=== PATIENT | male | born 1945 | race Caucasian/White ===

== ENCOUNTER 2019-02-08 10:22 | Day surgery (SDC) | payer OTHER, SELFPAY ==
--- NOTE | 2019-02-08 | PATH_ITS ---
[facility] Accession Number: [id number] . 01 Material submitted: . PART A: stomach - LESION PROXIMAL STOMACH PART B: esophagus, E-G Junction - GE JUNCTION . 02 Diagnosis: A. Proximal Stomach, Biopsy: Gastric hyperplastic polyp. Negative for Helicobacter by immunohistochemistry. Negative for intestinal metaplasia. Negative for dysplasia and malignancy. . B. Gastroesophageal Junction, Biopsy: Squamocolumnar junctional mucosa with specialized intestinal metaplasia, consistent with Sandoval's esophagus. Negative for dysplasia and malignancy. [facility]/02/10/2019 . 02 Electronically signed: . Orin Diamond MD, Pathologist NPI- [id number] . 01 Gross description: . Part A: LESION PROXIMAL STOMACH: Received in formalin are 2 fragment(s) of newton, soft tissue measuring 0.2 x 0.2 x 0.2 cm to 0.3 x 0.2 x 0.2 cm which is entirely submitted and submitted entirely in 1 cassette(s) Part B: GE JUNCTION: Received in formalin are multiple fragment(s) of newton, soft tissue measuring 0.1 x 0.1 x 0.1 cm to 0.2 x 0.1 x 0.1 cm which is entirely submitted and submitted entirely in 1 cassette(s) /DMC /DMC . 02 Microscopic: . A. An immunohistochemical stain was performed to evaluate for Helicobacter organisms and is negative. The control stain showed appropriate reactivity. . * This test was developed and its performance characteristics determined by [employer]. It has not been cleared or approved by the U.S. Food and Drug Administration. The FDA has determined that such clearance or approval is not necessary. This test is used for clinical purposes. It should not be regarded as investigational or for research. . 02 Pathologist provided ICD-10: K22.70 . 02 CPT . 945726, 948340, C43321 Performed at: 01 [facility] [address] [place] [address], [place], [place] [id number] MD Huseyin Bolaños MD Phone: [phone] Performed at: 02 [facility] [address] [place], [place] [id number] MD Orin Diamond MD Phone: [phone]
[2019-02-08] MEDS: SODIUM CHLORIDE 0.9% 1,000 ML 200 ML IV (10:57)
[2019-02-08 10:58] VITALS: BP 143/82; PULSE 66; RESP 18; TEMP 36.3; O2SAT 100
[2019-02-08 11:05] VITALS: BMI 27.0
--- NOTE | 2019-02-08 11:34 | PM.HP.1 ---
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 He had a scope done a year ago and a gastric tumor was found that was resected. It turned out to be a gist tumor. He has no trouble eating or swallowing. They repaired his hiatal hernia and he has had no reflux since his operation. Patient History Medical History (Updated 02/08/19 @ 11:37 by Solomon Moses MD) Sandoval's esophagus determined by biopsy (Acute) GERD (gastroesophageal reflux disease) (Acute) TIA (transient ischemic attack) (Acute) Gastrointestinal stromal tumor (GIST) of stomach (Resolved) Surgical History (Updated 02/08/19 @ 11:23 by Kathy Null RN) History of appendectomy (Acute) Social History household members: children Family & Social History Social History: household members children Meds Home Medications Medication Instructions Recorded Confirmed Type aspirin 81 mg PO DAILY 02/08/19 02/08/19 History atorvastatin 20 mg PO DAILY 02/08/19 02/08/19 History cholecalciferol (vitamin D3) 5,000 unit PO DAILY 02/08/19 02/08/19 History [Vitamin D3] coenzyme Q10 [Co Q-10] 100 mg PO DAILY 02/08/19 02/08/19 History cyanocobalamin-cobamamide [B-12 2,500 mg SUBLINGUAL DAILY 02/08/19 02/08/19 History Plus] levothyroxine 75 mcg PO DAILY 02/08/19 02/08/19 History prazosin 5 mg PO BEDTIME 02/08/19 02/08/19 History trazodone 150 mg PO DAILY 02/08/19 02/08/19 History Allergies Allergy/AdvReac Type Severity Reaction Status Date / Time No Known Allergies Allergy Verified 02/08/19 11:13 Review of Systems Review of Systems All systems reviewed & are unremarkable except as noted in HPI and below Exam Vital Signs (past 8 hours): - 02/08/19 10:58 Temperature 97.4 F L Pulse Rate 66 Respiratory Rate 18 Blood Pressure 143/82 H Pulse Oximetry 100 Oxygen Delivery Method Room Air Narrative Exam Narrative: Pleasant cooperative patient no apparent distress. Lungs are clear to auscultation. No rales or rhonchi. Heart regular rate and rhythm no murmur gallop. Abdomen is soft nontender without mass. No obvious hernias. Patient is alert and oriented x3. Assessment & Plan Assessment & Plan narrative: The patient for a screening colonoscopy. I have discussed the procedure with them. Risks of bleeding, perforation which would necessitate major operation, failure to find remove all lesions, the potential tattoo were all discussed. All questions were answered. They wished to proceed.
--- NOTE | 2019-02-08 11:37 | PM.PREOP ---
Pre-operative Note Interval Note History & Physical reviewed/Exam performed by Physician: Yes Changes to H&P: Yes H&P completed within 30 days and has changed as indicated here:: Discussed risks of bleeding and perforation with him along with the need to biopsy his distal esophagus. He wishes to proceed ASA Class (for procedural sedation): II
[2019-02-08] MEDS: TETRACAINE/BENZOCAINE/BUTAMBEN (CETACAINE) BOTTLE 1 SPRAY TOP (11:40)
[2019-02-08] MEDS: LIDOCAINE 4% SOLN 50 ML 20 ML TOP (11:41)
--- NOTE | 2019-02-08 11:45 | SUR.OPER ---
GLASSES AND HEARING AID FROM LEFT EAR IN LABELED CONTAINERS TO PACU WITH PATIENT. RIGHT EAR HEARING AID IN PLACE
[2019-02-08] MEDS: MIDAZOLAM 5 MG/5 ML VIAL IV (11:46)
[2019-02-08] MEDS: fentaNYL 250 MCG/5 ML INJ IV (11:47)
--- NOTE | 2019-02-08 12:03 | P.OP.ENDO_ITS ---
Operative Date/Time/Diagnoses Date of procedure: 02/08/19 Time of procedure: 11:56 Pre-op diagnosis: History of gastrointestinal stromal tumor of the stomach post resection. History of Sandoval's esophagus Post-op diagnosis: same Procedure & Clinicians Study performed: EGD with cold biopsy Same procedure as scheduled: Yes Indications: Patient with the above history here for surveillance exam Surgeon: Solomon Moess Procedure Notes SCOAP/Timeout: Performed Procedure in detail: The patient was placed in the left lateral decubitus position after having topical anesthetic applied his oropharynx. He was sedated using fentanyl and Versed. Bite block was inserted. The scope was passed through it into the esophagus. The esophagus was normal until we reach the distal esophagus. The GE junction was somewhere in the area of 37 cm from the incisors. It was not particularly distinct because of extensive Sandoval's esophagus. the scope was passed into the stomach which insufflated well. the body and antrum were normal in appearance. The pyloric channel was patent. The duodenum was normal to the 3rd part. Scope was brought back into the stomach and retroflexed. There was an unusual metallic device apparently placed at the time of operation. I am not quite sure the nature of it but it seemed to gather tissue together and at the gathering was a rounded ball of tissue that may represent a normal finding but given the patient's prior history I chose to biopsy this area. pictures were taken. The scope was then straightened and brought up into the GE junction area where multiple biopsies were taken cir cumferentially. scope was then removed and the patient tolerated the procedure well. Scope withdrawal time: Not applicable Sedation minutes: 14 Findings: Sandoval's esophagus and other findings (Rounded lesion surrounded by a metallic clip) Specimen(s): other (Biopsies of rounded gastric lesion and GE junction) Complications: none Recommendations: EGD in 1 year Follow up: as needed Disposition: PACU
[2019-02-08 12:04] VITALS: BP 111/79; PULSE 65; RESP 11; TEMP 36.6; O2SAT 96
[2019-02-08 12:05] VITALS: BP 121/80; PULSE 80; RESP 13; O2SAT 95
[2019-02-08 12:10] VITALS: BP 121/80; PULSE 83; RESP 15; O2SAT 92
--- NOTE | 2019-02-08 12:12 | SUR.PHASEI ---
report to óscar. pt gradually awakened, tolerated ice chips, speech strong.
[2019-02-08 12:15] VITALS: BP 112/81; PULSE 77; RESP 15; O2SAT 95
== END 2019-02-08 12:27 | disposition home or self-care (01) ==
PROVIDERS: PCP Family Medicine; Visit Provider Specialist
PROC: 0DJ08ZZ Inspection of Upper Intestinal Tract, Via Natural or Artificial Opening Endoscopic (ICD-10-PCS; CPT 43235; principal; 2019-02-08 11:45)
DX: K22.70 Barrett's esophagus without dysplasia (principal); Z87.19 Personal history of other diseases of the digestive system; K21.9 Gastro-esophageal reflux disease without esophagitis
CPT/HCPCS: 43239; 99152; J2250; J3010

== ENCOUNTER → 2019-05-16 10:54 | Outpatient (CLI) | payer OTHER, SELFPAY ==
--- NOTE | 2019-05-16 | DI.US.S_ITS ---
PROCEDURE: US CAROTID DOPPLER BI INDICATIONS: Occlusion and stenosis of bilateral carotid arteri TECHNIQUE: Color and pulse Doppler interrogation was performed of both carotid systems, with image documentation and velocity measurements. COMPARISON: [facility], , CAROTID DOPPLER BI, 02/17/2018, 9:58. FINDINGS: Stenosis calculations are based on SRU (Society of Radiologists in Ultrasound) criteria. The flow velocities and the arterial waveforms are normal within both carotid arterial systems. Atherosclerotic plaque is seen on both sides. The estimated degree of internal carotid artery stenosis is less than 50%. Antegrade flow is confirmed within both vertebral arteries. IMPRESSION: No hemodynamically significant stenosis is seen. Similar to prior. Atherosclerotic plaque is noted bilaterally. Dictated by: Federico Chauhan M.D. on 05/16/2019 at 11:01 Approved by: Federico Chauhan M.D. on 05/16/2019 at 11:01
== END ==
PROVIDERS: PCP Family Medicine; Visit Provider Family Medicine
DX: I65.23 Occlusion and stenosis of bilateral carotid arteries (principal)
CPT/HCPCS: 93880

== ENCOUNTER → 2020-02-21 14:28 | Outpatient (CLI) | payer OTHER, SELFPAY ==
--- NOTE | 2020-02-21 | DI.US.S_ITS ---
PROCEDURE: US CAROTID DOPPLER BI INDICATIONS: Occlusion and stenosis of bilateral carotid arteries TECHNIQUE: Color and pulse Doppler interrogation was performed of both carotid systems, with image documentation and velocity measurements. COMPARISON: [facility], , CAROTID DOPPLER BI, 05/16/2019, 11:01. FINDINGS: Stenosis calculations are based on SRU (Society of Radiologists in Ultrasound) criteria. Right side: Brachial blood pressure: 117/82 mm Hg. Common carotid artery peak systolic velocity: 68 cm/sec. Internal carotid artery peak systolic velocity: 60 cm/sec. Internal carotid artery end diastolic velocity: 19 cm/sec. External carotid artery peak systolic velocity: 76 cm/sec. ICA/CCA peak systolic ratio: 0.9. Nicolas scale imaging description: Mild/moderate plaque at the bifurcation Percent internal carotid artery stenosis: Less than 50%. Vertebral artery: Flow direction is antegrade. Left side: Brachial blood pressure: 121/82 mm Hg. Common carotid artery peak systolic velocity: 78 cm/sec. Internal carotid artery peak systolic velocity: 59 cm/sec. Internal carotid artery end diastolic velocity: 23 cm/sec. External carotid artery peak systolic velocity: 77 cm/sec. ICA/CCA peak systolic ratio: 0.8. Nicolas scale imaging description: Mild plaque at the bifurcation. Percent internal carotid artery stenosis: Less than 50%. Vertebral artery: Flow direction is antegrade. IMPRESSION: Less than 50% stenosis of the internal carotid arteries bilaterally. Velocities are stable compared to prior exam. Dictated by: Jazmine Hogue M.D. on 02/21/2020 at 16:03 Approved by: Jazmine Hogue M.D. on 02/21/2020 at 16:05
== END ==
PROVIDERS: PCP Family Medicine; Referring Provider Family Medicine; Visit Provider Family Medicine
DX: I65.23 Occlusion and stenosis of bilateral carotid arteries (principal)
CPT/HCPCS: 93880

== ENCOUNTER → 2021-02-07 10:10 | Outpatient (CLI) | payer OTHER, SELFPAY ==
[2021-02-07 20:06] LABS: Add Manual Diff / Slide Review NO; Basophils Absolute Auto 0 /uL (0-100); Basophils Percent Auto 0.6 % (0-2); Eosinophils Absolute Auto 300 /uL (0-450); Eosinophils Percent Auto 5.1 % (2-4); Hematocrit 46.6 % (41-53); Hemoglobin 15.6 g/dL (13.5-17.5); Lymphocytes Absolute Auto 1400 /uL (1100-4500); Lymphocytes Percent Auto 28.1 % (25-40); Mean Corpuscular HGB Conc 33.5 % (30-36); Mean Corpuscular Hemoglobin 34.1 PG (26-34); Monocytes Absolute Auto 600 /uL (0-900); Monocytes Percent Auto 12.4 % (3-14); Neutrophils Absolute Auto 2700 /uL (1500-7000); Neutrophils Percent Auto 53.8 % (50-75); Platelet Count 200 X10^3/uL (150-400); Red Blood Cell Count 4.57 X10^6/uL (4.5-5.9); Red Cell Distribution Width 14.5 % (11.6-14.8); White Blood Cell Count 5.1 X10^3/uL (4.5-11.0)
[2021-02-07 20:18] LABS: Alanine Aminotransferase 22 IU/L (<50); Albumin 4.1 g/dL (3.5-5.0); Albumin Globulin Ratio 1.6 (1.0-2.8); Alkaline Phosphatase 67 U/L (38-126); Aspartate Aminotransferase 29 IU/L (17-59); BUN Creatinine Ratio 25.5 (6-22); Bilirubin Total 0.8 mg/dL (0.2-1.3); Blood Urea Nitrogen 27 mg/dL (9-20); Carbon Dioxide 29 mmol/L (22-32); Chloride 103 mmol/L (98-107); Estimated Glomerular Filt Rate > 60.0 mL/min (>60); Globulin 2.6 g/dL (1.7-4.1); Glucose 103 mg/dL (80-110); HEMOLYSIS < 15 (0-50); Potassium 4.8 mmol/L (3.4-5.1); Sodium 138 mmol/L (137-145); Total Protein 6.7 g/dL (6.3-8.2)
[2021-02-07 20:49] LABS: TSH w/ Reflex to FT4 1.46 uIU/mL (0.47-4.68)
== END ==
PROVIDERS: PCP Family Medicine; Visit Provider Family Medicine
DX: E03.9 Hypothyroidism, unspecified (principal); I77.9 Disorder of arteries and arterioles, unspecified; K22.70 Barrett's esophagus without dysplasia
CPT/HCPCS: 80053; 84443; 85025

== ENCOUNTER → 2021-08-27 09:29 | Outpatient (CLI) | payer OTHER, SELFPAY ==
--- NOTE | 2021-08-27 09:31 | DI.US.S_ITS ---
PROCEDURE: US CAROTID DOPPLER BI INDICATIONS: TIA TECHNIQUE: Color and pulse Doppler interrogation was performed of both carotid systems, with image documentation and velocity measurements. COMPARISON: [facility], , CAROTID DOPPLER BI, 02/21/2020, 14:40. FINDINGS: Stenosis calculations are based on SRU (Society of Radiologists in Ultrasound) criteria. Right side: Brachial blood pressure: 124/83 mm Hg. Common carotid artery peak systolic velocity: 61 cm/sec. Internal carotid artery peak systolic velocity: 48 cm/sec. Internal carotid artery end diastolic velocity: 17 cm/sec. External carotid artery peak systolic velocity: 56 cm/sec. ICA/CCA peak systolic ratio: 0.8 . Nicolas scale imaging description: Mild/moderate Percent internal carotid artery stenosis: Less than 50 percent . Vertebral artery: Flow direction is antegrade. Left side: Brachial blood pressure: 118/77 mm Hg. Common carotid artery peak systolic velocity: 77 cm/sec. Internal carotid artery peak systolic velocity: 48 cm/sec. Internal carotid artery end diastolic velocity: 19 cm/sec. External carotid artery peak systolic velocity: 56 cm/sec. ICA/CCA peak systolic ratio: 0.6 . Nicolas scale imaging description: Mild Percent internal carotid artery stenosis: Less than 50 percent . Vertebral artery: Flow direction is antegrade. IMPRESSION: Waveforms and velocities are consistent with stable less than 50 percent bilateral proximal ICA stenosis Approved by: Justin Anderson M.D. on 08/27/2021 at 11:48
== END ==
PROVIDERS: PCP Family Medicine; Referring Provider Nurse Practitioner Family; Visit Provider Nurse Practitioner Family
DX: I65.23 Occlusion and stenosis of bilateral carotid arteries (principal)
CPT/HCPCS: 93880

== ENCOUNTER → 2021-09-24 11:07 | Outpatient (CLI) | payer OTHER, SELFPAY ==
--- NOTE | 2021-09-24 11:13 | DI.MRI.S_ITS ---
PROCEDURE: MR SHOULDER RT WO CON INDICATIONS: Adhesive capsulitis, persistent immobility right shoulder wi TECHNIQUE: Noncontrast oblique coronal T2 fast spin echo with fat saturation, oblique sagittal T1 spin echo and T2 fast spin echo with fat saturation, axial T1 spin echo and T2 fast spin echo with fat saturation through the shoulder. COMPARISON: None. FINDINGS: Image quality: Excellent. Rotator cuff: There is mild T2 signal elevation throughout the supraspinatus and infraspinatus tendons at the humeral insertion sites extending the musculotendinous junctions, indicating tendinopathy. There is superimposed full-thickness tearing the mid/anterior supraspinatus tendon at the humeral insertion site measuring roughly 15 mm anteroposterior. There is associated supraspinatus atrophy. Low-grade partial-thickness articular surface tearing of the upper subscapularis tendon at the humeral insertion site extending the musculotendinous junction. Infraspinatus and teres minor tendons are intact. Bones and bursae: No bone marrow contusions or fractures. Moderate acromioclavicular joint degeneration. The acromion demonstrates conventional anatomy, without an os acromiale. No pathologic subacromial-subdeltoid or subcoracoid bursal fluid is present. Capsule and soft tissues: There is undercutting of the anterosuperior labrum. The long head of the biceps tendon demonstrates normal location and morphology. The rotator interval appears normal, without fibrosis. The coracohumeral ligament is normal in thickness. IMPRESSION: 1. Supraspinatus and infraspinatus tendinopathy. 2. Full-thickness tearing of the mid and anterior supraspinatus with associated supraspinatus atrophy. 3. Low-grade partial-thickness tearing of the subscapularis. 4. Acromioclavicular joint osteoarthritis. 5. Possible anterosuperior glenoid labral tearing. Dictated by: Justa Trinh M.D. on 09/24/2021 at 11:50 Approved by: Justa Trinh M.D. on 09/24/2021 at 12:06
== END ==
PROVIDERS: PCP Family Medicine; Referring Provider Family Medicine; Visit Provider Family Medicine
DX: S46.011A Strain of muscle(s) and tendon(s) of the rotator cuff of right shoulder, initial encounter (principal); M75.01 Adhesive capsulitis of right shoulder; M19.011 Primary osteoarthritis, right shoulder; X58.XXXA Exposure to other specified factors, initial encounter
CPT/HCPCS: 73221

== ENCOUNTER → 2021-10-23 08:30 | Outpatient (CLI) | payer OTHER, SELFPAY ==
[2021-10-23 21:12] LABS: COVID19 - ORCAS (NP or Nasal) Negative (Negative)
== END ==
PROVIDERS: PCP Family Medicine; Visit Provider Physician Assistant
DX: Z20.822 Contact with and (suspected) exposure to COVID-19 (principal)
CPT/HCPCS: U0003

== ENCOUNTER → 2022-01-08 08:05 | Outpatient (CLI) | payer OTHER, SELFPAY ==
[2022-01-08 20:44] LABS: COVID19 - ORCAS (NP or Nasal) Negative (Negative)
== END ==
PROVIDERS: PCP Family Medicine; Visit Provider Family Medicine
DX: Z20.822 Contact with and (suspected) exposure to COVID-19 (principal)
CPT/HCPCS: U0003

== ENCOUNTER → 2022-03-20 08:28 | Outpatient (CLI) | payer OTHER, SELFPAY ==
[2022-03-20 18:43] LABS: Add Manual Diff / Slide Review NO; Basophils Absolute Auto 0 /uL (0-100); Basophils Percent Auto 0.8 % (0-2); Eosinophils Absolute Auto 200 /uL (0-450); Eosinophils Percent Auto 4.7 % (2-4); Lymphocytes Absolute Auto 1300 /uL (1100-4500); Lymphocytes Percent Auto 26.6 % (25-40); Mean Corpuscular HGB Conc 34.8 % (30-36); Mean Corpuscular Hemoglobin 34.2 PG (26-34); Mean Corpuscular Volume 98.2 fL (80-100); Monocytes Absolute Auto 600 /uL (0-900); Monocytes Percent Auto 11.9 % (3-14); Neutrophils Absolute Auto 2800 /uL (1500-7000); Platelet Count 193 X10^3/uL (150-400); Red Blood Cell Count 4.38 X10^6/uL (4.5-5.9); Red Cell Distribution Width 14.9 % (11.6-14.8)
[2022-03-20 18:49] LABS: Alanine Aminotransferase 21 IU/L (<50); Albumin 4.2 g/dL (3.5-5.0); Albumin Globulin Ratio 1.8 (1.0-2.8); Alkaline Phosphatase 61 U/L (38-126); Aspartate Aminotransferase 26 IU/L (17-59); Bilirubin Total 0.9 mg/dL (0.2-1.3); Blood Urea Nitrogen 29 mg/dL (9-20); Calcium 9.4 mg/dL (8.4-10.2); Carbon Dioxide 27 mmol/L (22-32); Chloride 105 mmol/L (98-107); Cholesterol 166 mg/dL (140-199); Estimated Glomerular Filt Rate > 60 mL/min (>60); Globulin 2.4 g/dL (1.7-4.1); Glucose 97 mg/dL (80-110); HDL Cholesterol 102 mg/dL (40-60); HEMOLYSIS < 15 (0-50); LDL Cholesterol Calculated 56 mg/dL (<100); Potassium 4.3 mmol/L (3.4-5.1); Sodium 139 mmol/L (137-145); Total Protein 6.6 g/dL (6.3-8.2); Triglycerides 39 mg/dL (35-150)
[2022-03-20 19:17] LABS: Prostate Specific Antigen Scrn 2.63 ng/mL (0.1-4.0)
== END ==
PROVIDERS: PCP Family Medicine; Visit Provider Family Medicine
DX: E03.9 Hypothyroidism, unspecified (principal); E78.2 Mixed hyperlipidemia; I65.23 Occlusion and stenosis of bilateral carotid arteries; I65.29 Occlusion and stenosis of unspecified carotid artery; K22.70 Barrett's esophagus without dysplasia; M25.562 Pain in left knee; Z00.00 Encounter for general adult medical examination without abnormal findings; Z12.11 Encounter for screening for malignant neoplasm of colon; Z12.5 Encounter for screening for malignant neoplasm of prostate; Z13.6 Encounter for screening for cardiovascular disorders; Z86.73 Personal history of transient ischemic attack (TIA), and cerebral infarction without residual deficits
CPT/HCPCS: 80053; 80061; 85025; G0103

== ENCOUNTER → 2022-03-24 10:56 | Outpatient (CLI) | payer OTHER, SELFPAY ==
--- NOTE | 2022-03-24 10:58 | DI.MRI.S_ITS ---
PROCEDURE: MR KNEE LT WO CON INDICATIONS: chronic knee pain not responsive to PT and injection TECHNIQUE: Noncontrast sagittal PD fast spin echo and T2 fast spin echo with fat saturation, sagittal 3-D FLASH with fat saturation; coronal T1 spin echo and PD fast spin echo with fat saturation, and axial PD fast spin echo with fat saturation through the knee. COMPARISON: [facility] ([place]), CR, XR KNEE LT 3V, 10/15/2021, 9:32. [facility], CR, XR KNEE ARTHRITIC SERIES LT, 11/08/2021, 12:10. FINDINGS: Image quality: Excellent. Menisci: There is medial meniscal extrusion. There is oblique tear of the posterior horn of the medial meniscus extending to the inferior articular surface. In addition, there is complex tear of the body of the medial meniscus. The lateral meniscus demonstrates normal morphology and internal signal. The meniscal root ligaments appear intact. Cruciate ligaments: The anterior and posterior cruciate ligaments appear intact. Medial structures: The medial collateral ligament appears intact. The posterior semimembranosus tendon insertions and meniscocapsular junction appear intact. Visualized portions of the pes anserinus tendons appear normal. No abnormal bursal fluid. Lateral structures: The lateral collateral ligament, long and short heads of the biceps femoris tendon appear intact. The popliteus tendon appears normal. Iliotibial band appears normal. Anterior structures: The quadriceps and patellar tendons appear intact. Patellar alignment is normal. No femoral trochlear dysplasia or ventral trochlear prominence. No edema in the infrapatellar fat pad. Bones and cartilage: No bone marrow contusions or fractures. There is moderate tricompartmental cartilage thinning and fibrillation. Joint space: There is small knee joint fluid. There is a moderate-sized Hernandez's cyst. Normal appearing synovial plicae are incidentally noted. IMPRESSION: 1. Medial meniscal extrusion with complex tear of the body and posterior horn. 2. Moderate tricompartmental cartilage thinning and fibrillation. 3. Small knee joint effusion. 4. A moderate-sized Hernandez cyst. Dictated by: Booker Ryan M.D. on 03/24/2022 at 12:54 Approved by: Booker Ryan M.D. on 03/24/2022 at 13:01
== END ==
PROVIDERS: PCP Family Medicine; Referring Provider Orthopaedic Surgery; Visit Provider Family Medicine
DX: S83.232A Complex tear of medial meniscus, current injury, left knee, initial encounter (principal); M71.22 Synovial cyst of popliteal space [Baker], left knee; M25.562 Pain in left knee; M25.462 Effusion, left knee; G89.29 Other chronic pain
CPT/HCPCS: 73721

== ENCOUNTER → 2022-09-08 10:57 | Outpatient (CLI) | payer OTHER, SELFPAY ==
[2022-09-08 12:08] LABS: Add Manual Diff / Slide Review NO; Basophils Absolute Auto 100 /uL (0-100); Basophils Percent Auto 0.6 % (0-2); Eosinophils Absolute Auto 300 /uL (0-450); Eosinophils Percent Auto 3.1 % (2-4); Hematocrit 45.8 % (41-53); Hemoglobin 15.4 g/dL (13.5-17.5); Lymphocytes Absolute Auto 1600 /uL (1100-4500); Mean Corpuscular HGB Conc 33.5 % (30-36); Mean Corpuscular Hemoglobin 33.3 PG (26-34); Mean Corpuscular Volume 99.4 fL (80-100); Monocytes Absolute Auto 1000 /uL (0-900); Monocytes Percent Auto 11.2 % (3-14); Neutrophils Absolute Auto 5900 /uL (1500-7000); Neutrophils Percent Auto 67.1 % (50-75); Platelet Count 200 X10^3/uL (150-400); Red Blood Cell Count 4.61 X10^6/uL (4.5-5.9); Red Cell Distribution Width 14.3 % (11.6-14.8); White Blood Cell Count 8.8 X10^3/uL (4.5-11.0)
[2022-09-08 12:49] LABS: COVID19 -Nasal RAPID Negative (Negative)
== END ==
PROVIDERS: PCP Family Medicine; Referring Provider Orthopaedic Surgery; Visit Provider Orthopaedic Surgery
DX: Z11.59 Encounter for screening for other viral diseases (principal); Z01.812 Encounter for preprocedural laboratory examination
CPT/HCPCS: 36415; 85025; 87635; C9803

== ENCOUNTER 2022-09-09 11:20 | Day surgery (SDC) | payer OTHER, SELFPAY ==
[2022-09-08 10:56] VITALS: BMI 29.0
[2022-09-09] VITALS (10 sets, daily range): BP systolic 119–162; BP diastolic 64–86; PULSE 68–92; RESP 12–18; TEMP 36.1–36.6; O2SAT 96–100; BMI 29.0
--- NOTE | 2022-09-09 07:26 | DI.RAD.S_ITS ---
PROCEDURE: XR KNEE LT 1TO2V INDICATIONS: prosthesis placement TECHNIQUE: 2 view(s) of the knee acquired. COMPARISON: [facility] ([place]), ZAKIYA, XR KNEE LT 3V, 10/15/2021, 9:32. FINDINGS: Bones: Patient is status post knee joint medial intercondylar arthroplasty. Hardware components are in expected positions. Visualized bony structures are intact. Soft tissues: Overlying postoperative changes are noted. Metallic density foreign body noted in the medial distal thigh soft tissues which is stable. IMPRESSION: Expected postsurgical change for left knee medial hemiarthroplasty. Dictated by: Maria Del Rosario Blanc MD, PhD on 09/09/2022 at 16:33 Approved by: Maria Del Rosario Blanc MD, PhD on 09/09/2022 at 16:35
[2022-09-09] MEDS: ACETAMINOPHEN 325 MG TABLET 975 MG PO (12:06)
[2022-09-09] MEDS: CELECOXIB 200 MG CAPSULE PO (12:06)
[2022-09-09] MEDS: PREGABALIN 75 MG CAPSULE PO (12:06)
[2022-09-09] MEDS: LACTATED RINGERS 1,000 ML 42 ML IV ×2 (12:09→15:02)
[2022-09-09] MEDS: VANCOMYCIN 1,000 MG/200 ML PIGGYBACK 200 MG IV (13:01)
--- NOTE | 2022-09-09 13:42 | PM.PREOP ---
Pre-operative Note COVID-19 COVID-19 status: Negative Interval Note History & Physical reviewed/Exam performed by Physician: Yes Changes to H&P: No
[2022-09-09] MEDS: CEFAZOLIN 2 GM/100 ML PREMIX 100 ML IV ×2 (14:15→21:54)
[2022-09-09] MEDS: TRANEXAMIC ACID 1,000 MG VIAL 1000 MG INJ (14:26)
--- NOTE | 2022-09-09 14:33 | SUR.OPER ---
Supine on padded OR bed. Pillow under head, arms secured on padded armboards <90 degree abduction. Safety belt across torso. Non-operative leg secured with tape over blanket over lower leg. Operative leg secured in Apolinar positioner. Foam padded brace at thigh of operative leg.
[2022-09-09] MEDS: BUPIVACAINE LIPOSOME 266 MG/20 ML VIAL INJ (14:39)
[2022-09-09] MEDS: BUPIVACAINE 0.25% (PF) 60 ML, EPINEPHrine 0.3 MG INJ (14:39)
--- NOTE | 2022-09-09 16:32 | PM.OP.1 ---
Operative Date/Time/Diagnoses Date of procedure: 09/09/22 Time of procedure: 14:30 Pre-op diagnosis: Left knee medial compartment osteoarthritis Post-op diagnosis: same Procedure & Clinicians Procedure: Left knee medial compartment arthroplasty, prepatellar bursectomy Same procedure as scheduled: Yes Indications: The patient has had progressively worsening left knee pain with radiographic changes consistent with arthritis. Non-operative management has failed and the patient has requested left medial unicompartment knee replacement. The risks, benefits and alternatives to surgery were discussed with the patient prior to proceeding. Risks discussed included, but were not limited to, failure to relieve pain, stiffness, infection, nerve damage, deep venous thrombosis, pulmonary embolism, stroke, coma, heart attack, permanent paralysis and , as well as the potential need for eventual revision of the prosthetic. Surgeon: Lakesha Esquivel Air Bag Builder: Steve Rincon Anesthesia Type: Spinal and Sedation Operative Notes Findings: Severe left knee medial compartment arthritis, mild to moderate prepatellar bursitis, good range of motion, adequate bone Closure Type: primary Specimen(s): none sent Prosthetic devices, grafts, tissues, transplants, or devices: Esquivel and nephew journey BCS 2 size 6 tibia, size 6 femur, +8 poly Estimated Blood Loss (mL): 150 Blood products transfused: none Tourniquet time (min): 59 Procedure in detail: The patient was seen in the pre-operative area, where the left knee was identified as the operative site and this was marked with my initials. The patient received pre-operative antibiotics, and was taken to the operating room and placed on the operative table in the supine position. After satisfactory anesthesia, a multimedia production assistant out was performed. The left leg was encircled with a tourniquet about the proximal thigh, and the leg was prepared from the toes to the tourniquet with ChloroPrep in the usual fashion and draped through sterile drapes. The leg was elevated and exsanguinated with Eschmark bandage and the tourniquet inflated to [250] mmHg pressure. The knee was approached through an approximately 14 cm incision medial parapatella incision and carried into the knee through a medial parapatellar arthrotomy. The osteophytes and medial meniscus were removed. Next, a small amount of the anterior tibial boss was carefully resected with a saw. The guide was placed along the medial joint line. It was meticulously adjusted to make sure there was appropriate slope that it was at the joint line and then was pinned to the tibia and the femur. The medial femoral condylar cut was made in extension. The tibial cut was made in flexion. The bone was meticulously irrigated with normal saline. Small amount of additional meniscus was resected posterior capsule was checked and injected with Marcaine. The extension gap was carefully checked with an 8 mm gap committee member was noted that it fit well. A small number of additional osteophytes were resected. The tibia was a size [6]. It was noted that it fit without overhang. The femur was sized and it was noted to be a [6]. The appropriate cutting guide was pinned into place and carefully positioned on the femoral condyle. Drill holes were placed. The tibia was pinned into place and drill holes were made. Trial reduction with the appropriate poly showed full range of motion and good stability at 0, 45. and 90? with normal tracking of the components without edge loading. The bone was meticulously irrigated and dried. Additional Marcaine was injected. The posterior capsule was injected with 0.25% Marcaine mixed with 20 ml Exparel for post-operative pain control. The remainder of this mixture was injected into the capsule and subcutaneous tissues during cement curing. Range of motion was [0-130], with good stability throughout the range. The trials were then remove. The cement was as applied and the final prosthetics placed. Excess cement was removed during and after cement curing. A brief medial compartment Betadine soak was performed. After confirming there was no extruded cement posteriorly, the final tibial insert was placed. The knee was copiously irrigated and the tourniquet deflated. Hemostasis was obtained. The capsule was closed with interrupted vicryl. The subcutaneous tissue was closed with barbed sutures. The skin with a running 3-0 V-Lock suture and surgical glue. An Aquacel Ag dressing was applied and the patient was taken to recovery having tolerated the procedure well. Complications: none Post-operative Condition: stable Disposition: Acute Care Plan for aftercare: The patient will be maintained on a standard medial unicompartment knee replacement protocol with weight bearing as tolerated. The patient will receive aspirin and sequential compression devices for DVT prophylaxis. The patient will be discharged home when safe for the home environment.
[2022-09-09] MEDS: LACTATED RINGERS 1,000 ML 100 ML IV (18:28)
[2022-09-09] MEDS: ACETAMINOPHEN 325 MG TABLET 650 MG PO ×2 (18:28→23:50)
[2022-09-09] MEDS: ATORVASTATIN 20 MG TABLET PO (20:43)
[2022-09-09] MEDS: DOCUSATE 100 MG CAPSULE PO (20:43)
[2022-09-09] MEDS: ASPIRIN EC 81 MG TABLET PO (20:43)
[2022-09-09] MEDS: TRAZODONE 50 MG TABLET PO (20:43)
[2022-09-09] MEDS: PRAZOSIN HCL 5 MG CAPSULE PO (20:44)
--- NOTE | 2022-09-09 21:15 | PC.NURSE ---
Patient is alert and oriented. Breath sounds CTA with RA sat of 96%. HRR. Denies nausea. BT present and patient states he has passed flatus. Up to bathroom to void but initially unable to do so. Later he was up, again, to bathroom and voided 50cc with bladder scan showing 514cc; patient refused to be cathed at that time. Now assisted to bathroom and was able to urinate another 150cc urine; denied dysuria but does have some urinary hesitancy. Is able to move himself in bed and up with SBA. Complains of mild tenderness over left knee but declined scheduled Ibuprofen. Aquacel dressing to left knee CDI and covered with rosa maria wrap. Is able to lift leg off bed and CMS is intact. Bilateral calf SCD's applied. Fall risk score is moderate but patient is calling appropriately for assistance so alarm is not being used at this time.
[2022-09-10 03:00] VITALS: BP 125/66; PULSE 72; RESP 18; TEMP 36.6; O2SAT 96
[2022-09-10] MEDS: LACTATED RINGERS 1,000 ML 100 ML IV (05:02)
[2022-09-10] MEDS: IBUPROFEN 400 MG TABLET PO ×2 (05:08→08:36)
[2022-09-10 05:23] LABS: Hematocrit 43.3 % (41-53); Hemoglobin 14.1 g/dL (13.5-17.5)
[2022-09-10] MEDS: CEFAZOLIN 2 GM/100 ML PREMIX 100 ML IV (06:15)
[2022-09-10] MEDS: PANTOPRAZOLE DR 20 MG TABLET PO (06:16)
[2022-09-10] MEDS: LEVOTHYROXINE 75 MCG TABLET PO (06:16)
[2022-09-10] MEDS: ACETAMINOPHEN 325 MG TABLET 650 MG PO (06:16)
--- NOTE | 2022-09-10 07:39 | P.DS_ITS ---
History of Present Illness History of Present Illness Date Patient Seen: 09/10/22 Time Patient Seen: 07:39 Chief complaint: Knee pain Narrative: The pain is mild. Denies fever chills. No nausea or vomiting. Difficulty urinating after surgery yesterday. He has been urinating well. He does have assistance at home. Discharge Providers Provider Discharge Date: 09/10/22 Primary care physician: Gregory Leong MD Consults: 09/09/22 07:26 Consult to Anesthesiology Routine Comment: Consulting Provider: Anesthesiologist Reason for consultation: Regional block for post operative pain control 09/09/22 17:37 Consult to Discharge Planning Routine Comment: Discharge provider: Steve Rincon PA-C Summary Hospital Course Discharge Diagnosis: Left knee medial compartment osteoarthritis Hospital Course: Left knee medial compartment arthroplasty, prepatellar bursectomy Same procedure as scheduled: Yes Indications: The patient has had progressively worsening left knee pain with radiographic changes consistent with arthritis. Non-operative management has failed and the patient has requested left medial unicompartment knee replacement. The risks, benefits and alternatives to surgery were discussed with the patient prior to proceeding. Risks discussed included, but were not limited to, failure to relieve pain, stiffness, infection, nerve damage, deep venous thrombosis, pulmonary embolism, stroke, coma, heart attack, permanent paralysis and , as well as the potential need for eventual revision of the prosthetic. Surgeon: Lakesha Esquivel Chemist Water Purification: Steve Rincon Anesthesia Type: Spinal and Sedation Operative Notes Findings: Severe left knee medial compartment arthritis, mild to moderate prepatellar bursitis, good range of motion, adequate bone Closure Type: primary Specimen(s): none sent Prosthetic devices, grafts, tissues, transplants, or devices: Esquivel and nephew journey BCS 2 size 6 tibia, size 6 femur, +8 poly Estimated Blood Loss (mL): 150 Blood products transfused: none Tourniquet time (min): 59 Patient admitted to the hospital for the above-mentioned procedure. Patient taken operating room on 09/09/2022 underwent left knee medial compartment arthroplasty, prepatellar bursectomy. Patient back in his room recovering well as in stable condition. Again patient had some difficulty urinating on his own yesterday evening has been urinating well overnight and this morning. He will be discharged home today in stable condition. Status at Discharge Cognitive/behavioral status at discharge: at baseline, oriented Functional status at discharge: uses cane/walker Overall status at discharge: patient is progressing back to baseline Exam Vital Signs (past 8 hours): - 09/10/22 03:00 Temperature 97.9 F Pulse Rate 72 Respiratory Rate 18 Blood Pressure 125/66 Pulse Oximetry 96 Oxygen Flow Rate 0 Oxygen Delivery Method Room Air Oxygen Flow Rate 0 Narrative Exam Narrative: 77-year-old male resting comfortably in bed in no apparent distress. Dressing is clean, dry and intact. Motor function is intact bilateral lower extremities. Sensation grossly intact to light touch bilateral lower extremities. 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 Carotid artery stenosis Gastrointestinal stromal tumor (GIST) of stomach GERD (gastroesophageal reflux disease) History of TIA (transient ischemic attack) Supraspinatus tendon tear TIA (transient ischemic attack) Surgical History History of appendectomy History of colonoscopy History of tympanostomy Hx of hernia repair S/P left knee arthroscopy Social History household members: children Smoking Status: Never smoker alcohol intake: current Discharge Assessment & Plan Assessment and Plan Assessment: Patient progressing as expected status post left knee medial compartment arthroplasty, prepatellar bursectomy Plan of Treatment: Weight-bearing as tolerated Multimodal pain management Aspirin for DVT prophylaxis Discharge home today in stable condition. Discharge Plan Discharge Plan Patient Disposition: Home Provider Discharge Comment: Okay to discharge to home as long as he is ambulatory. Discharge orders & Medications Discharge Orders: Discharge (Order); Ordered 09/10/22 Ordered By: Steve Rincon Prescriptions: New oxycodone 5 mg Tablet 5 mg PO PACUNOW PRN (Reason: Mild or moderate pain) Qty: 30 0RF Continued levothyroxine 75 mcg tablet 75 mcg PO DAILY Qty: 90 3RF atorvastatin 20 mg tablet See Rx Instructions .ROUTE .COMPLEX Qty: 90 3RF Dose Instruction: TAKE ONE TABLET BY MOUTH EVERY DAY TO REDUCE CHOLESTEROL * LIMIT USE OF GRAPEFRUIT PRODUCTS Rx Instructions: TAKE ONE TABLET BY MOUTH EVERY DAY TO REDUCE CHOLESTEROL * LIMIT USE OF GR APEFRUIT PRODUCTS trazodone 150 mg tablet See Rx Instructions .ROUTE .COMPLEX Qty: 90 0RF Dose Instruction: TAKE ONE TABLET BY MOUTH EVERY NIGHT AT BEDTIME FOR SLEEP Rx Instructions: TAKE ONE TABLET BY MOUTH EVERY NIGHT AT BEDTIME FOR SLEEP prazosin 5 mg capsule 5 mg PO BEDTIME Qty: 90 1RF aspirin 81 mg Tablet,Delayed Release (Dr/Ec) 81 mg PO DAILY coenzyme Q10 [Co Q-10] 100 mg Capsule 100 mg PO DAILY cyanocobalamin-cobamamide [B-12 Plus] 2,500 mg Tablet, Sublingual 2,500 mg Sublingual DAILY cholecalciferol (vitamin D3) [Vitamin D3] 5,000 unit Tablet 5,000 unit PO DAILY omeprazole 20 mg Capsule,Delayed Release(Dr/Ec) 20 mg PO DAILY Follow up/Referrals: Lakesha Esquivel MD [Physician] - (2 weeks) Gregory Leong MD [Primary Care Provider] - Diet/Activity/Treatments Diet: Diet as Tolerated Activity: Ambulate multiple times a day. Use a cane or walker as needed. Cold/Heat Therapy: Apply ice to knee multiple times a day. Take baby aspirin 1 twice a day to prevent a blood clot. Skin/Wound/Dressing Care Skin care: Remove Kervin wrap tomorrow. Report to your healthcare provider any signs of infection, such as:: chills, fever, night sweats, increased pain, unusual drainage and unusual redness Dressing: Leave dressing on. Okay to shower. Visit Report/Discharge Packet Instructions: DI for Knee Replacement, DI for Constipation, How to Prevent Falls, DI for Taking Pain Medication Stand Alone Forms: Surgery Discharge Discharge Data Primary Care Provider: Gregory Leong Attending Provider: Lakesha Esquivel
[2022-09-10 08:26] VITALS: BP 149/82; PULSE 73; RESP 18; TEMP 36.3; O2SAT 97
[2022-09-10] MEDS: ASPIRIN EC 81 MG TABLET PO (08:35)
[2022-09-10] MEDS: CHOLECALCIFEROL (VITAMIN D3) 5,000 UNIT TABLET 5000 UNIT PO (08:35)
[2022-09-10] MEDS: INFLUENZA HD VACCINE 0.7 ML SYRINGE IM (08:36)
--- NOTE | 2022-09-10 10:39 | CM.DANOTE ---
DCP: Case received, EMR reviewed and met with patient. Patient's neighbor, was at bedside. Introduced self and role. Was able to obtain information regarding patient's baseline activity status prior to hospitalization. DCP assessment completed with information currently available. Patient is a 77 year old male who admitted yesterday morning to the care of the orthopedic team. PCP: Dr. Leong. Payer: confirmed: [facility]. Patient came to the hospital via private vehicle for a surgical procedure. Patient had left knee medial compartment arthroplasty. Patient has history of left knee osteoarthritis. Met with patient in his room. He was sitting up in bed, alert and oriented. His next door neighbor was in the room, and is assisting with getting patient home on the [facility]. Patient resides in [place] [address], and his son lives downstairs. At his baseline, he uses walking sticks for long walks, drives, and is independent. His neighbor will assist him with any needs. P: Patient is discharging home today with no needs, and will have outpatient P.T. on the [place]. Toya Torres RN/Water Quality Tester Discharge Planning/Care Management CM Discharge Assessment Start: 09/10/22 09:25 Freq: Status: Active Protocol: Document 09/10/22 09:25 (Rec: 09/10/22 09:30 [id number]) Discharge Planning Assessment Assigned Environmental Remediation Consultant Toya Torres RN/Water Quality Tester Advance Directives? Yes Advance Directives on File No History Provided By Patient,Medical Record Prior Living Arrangements House Household Members children Comment Son lives downstairs. Type of transporation used prior to Drives own vehicle admit Independent with ADL's Yes Is patient alert and oriented? Yes Caregiver for Another No DME Already Rented / Owned Other Comment Patient uses walking sticks outside. Patient/Family Preference OP PT Therapy Barriers to Discharge No Discharge Plan Home Transportation Arrangement Neighbor Referrals Initiated None needed Whiteboard Updated in Patient Room with Yes name and ext. # of Environmental Remediation Consultant Review Status In Process Next Review Type Continued Stay Review Pre-Anesthesia Assessment Start: 09/08/22 10:56 Freq: Status: Complete Protocol: Document 09/08/22 10:56 CAB (Rec: 09/08/22 12:16 CAB [id number]) Pre-Anesthesia Assessment Preferred Name Tulio Patient Information Reviewed Via Chart Review Comment Pre-op labs/ECG not identified , COVID screen not identified Primary Care Provider Gregory Leong Seen Specialist in Last 12 Months Yes Specialist Seen Orthopedist Primary Language Urdu Volunteer Services Manager Required No Height 5 ft 7 in Weight 185 lb Body Mass Index (BMI) 29.0 Barriers to Learning None Hx Anesthesia Reactions No Hx Family Anesthesia Reaction No Hx Malignant Hyperthermia No Hx Blood Transfusion Reaction No Anesthesia Review Requested No Metal Grader No Smoking Status Never smoker Pain Present Pain Reported Patient is completely paralyzed or No completely immobile Mental Status Oriented to own ability Hx Sleep Apnea No CPAP/BIPAP use not prescribed Currently Taking a Beta Maisha No Anti-Coagulant Therapy No Cardiac Testing No Hx Pacemaker/ICD No Pacemaker Rep Required? No Urinary Catheter Present No Hx Urinary Self Catheterization No Diabetes No Presence of External or Internal Medical No Devices Marital Status / Lives With children Patient Discharge Plan Description Return Home Comment Lives on [facility] Advance Directives? Yes
--- NOTE | 2022-09-10 11:49 | PC.NURSE ---
Discharge: Pt feels ready to d/c to home. BERENICE cancelled PT eval and gave d/c instructions. Dr. Esquivel here as well and gave instructions. Pt is indep in room. No printed RX, asked about same, was in the room with pt and pt reported he didn't want them nor would he take them. Has had pain relief with tylenol and ibuprofen. Tolerates diet w/out problems. Vds now w/out diff. So pt didn't have a script when he left. Given priority load pass. Reviewed d/c packet. Questions answered. Pt d/c to home via auto with friend.
== END 2022-09-10 09:30 | disposition home or self-care (01) ==
LOC: OR 16:48 → AC 17:35
PROVIDERS: PCP Family Medicine; Referring Provider Orthopaedic Surgery; Visit Provider Orthopaedic Surgery
PROC: (CPT 27446; principal; 2022-09-09 13:45)
DX: M17.12 Unilateral primary osteoarthritis, left knee (principal); M70.42 Prepatellar bursitis, left knee; M25.762 Osteophyte, left knee; Z23 Encounter for immunization
CPT/HCPCS: 27446; 36415; 73560; 85014; 85018; 90471; 90662; C1776; C1713; C9290; J0171; J0690; J2250; J3010

== ENCOUNTER → 2022-11-27 10:58 | Outpatient (CLI) | payer OTHER, SELFPAY ==
[2022-09-09 18:11] VITALS: BMI 29.0
[2022-11-27 19:06] LABS: BUN Creatinine Ratio 24.1 (6-22); Blood Urea Nitrogen 27 mg/dL (9-20); Calcium 9.2 mg/dL (8.4-10.2); Carbon Dioxide 28 mmol/L (22-32); Chloride 102 mmol/L (98-107); Cholesterol 163 mg/dL (140-199); Estimated Glomerular Filt Rate > 60 mL/min (>60); Glucose 98 mg/dL (80-110); HDL Cholesterol 83 mg/dL (40-60); HEMOLYSIS < 15 (0-50); LDL Cholesterol Calculated 72 mg/dL (<100); Potassium 4.6 mmol/L (3.4-5.1); Sodium 139 mmol/L (137-145); Triglycerides 42 mg/dL (35-150)
[2022-11-27 19:30] LABS: TSH w/ Reflex to FT4 1.75 uIU/mL (0.47-4.68)
== END ==
PROVIDERS: PCP Family Medicine; Visit Provider Family Medicine
DX: E03.9 Hypothyroidism, unspecified (principal); E78.2 Mixed hyperlipidemia; I65.23 Occlusion and stenosis of bilateral carotid arteries; Z86.73 Personal history of transient ischemic attack (TIA), and cerebral infarction without residual deficits
CPT/HCPCS: 80048; 80061; 84443

== ENCOUNTER → 2023-04-02 10:44 | Outpatient (CLI) | payer OTHER, SELFPAY ==
[2022-09-09 18:11] VITALS: BMI 29.0
--- NOTE | 2023-04-02 10:45 | DI.US.S_ITS ---
PROCEDURE: US CAROTID DOPPLER BI INDICATIONS: STENOSIS; HX TIA TECHNIQUE: Color and pulse Doppler interrogation was performed of both carotid systems, with image documentation and velocity measurements. COMPARISON: [facility], [place], US CAROTID DOPPLER BI, 08/27/2021, 10:49. FINDINGS: Stenosis calculations are based on SRU (Society of Radiologists in Ultrasound) criteria. Right side: Brachial blood pressure: 135/85 mm Hg. Common carotid artery peak systolic velocity: 55 cm/sec. Internal carotid artery peak systolic velocity: 53 cm/sec. Internal carotid artery end diastolic velocity: 18 cm/sec. External carotid artery peak systolic velocity: 53 cm/sec. ICA/CCA peak systolic ratio: 1.0 . Nicolas scale imaging description: Heavy plaque in the right proximal ICA. Percent internal carotid artery stenosis: Less than 50% . Vertebral artery: Flow direction is antegrade. Left side: Brachial blood pressure: 143/83 mm Hg. Common carotid artery peak systolic velocity: 83 cm/sec. Internal carotid artery peak systolic velocity: 46 cm/sec. Internal carotid artery end diastolic velocity: 18 cm/sec. External carotid artery peak systolic velocity: 71 cm/sec. ICA/CCA peak systolic ratio: 0.6 . Nicolas scale imaging description: Minimal plaque Percent internal carotid artery stenosis: Less than 50% . Vertebral artery: Flow direction is antegrade. IMPRESSION: 1. Plaque in the right proximal ICA, however less than 50% stenosis by imaging/ratio criteria. 2. No significant plaque or stenosis in the left ICA. Dictated by: Alfonso Barron M.D. on 04/02/2023 at 14:51 Approved by: Alfonso Barron M.D. on 04/02/2023 at 14:54
== END ==
PROVIDERS: PCP Family Medicine; Referring Provider Family Medicine; Visit Provider Family Medicine
DX: I77.9 Disorder of arteries and arterioles, unspecified (principal); Z86.73 Personal history of transient ischemic attack (TIA), and cerebral infarction without residual deficits; I65.21 Occlusion and stenosis of right carotid artery
CPT/HCPCS: 93880

== ENCOUNTER 2023-06-04 12:14 | Day surgery (SDC) | payer OTHER, SELFPAY ==
[2022-09-09 18:11] VITALS: BMI 29.0
--- NOTE | 2023-06-04 | PATH_ITS ---
[facility] Accession Number: [id number] No. of containers..03 Tissue . 01 Material submitted: . PART A: esophagus, E-G Junction - GE JUNCTION PART B: gastrointestinal site - GASTRIC POLYPS PART C: gastrointestinal site - GASTRIC MASS . 01 Diagnosis: A. GASTROESOPHAGEAL JUNCTION, BIOPSY: - COLUMNAR EPITHELIUM WITH INTESTINAL METAPLASIA, (SEE COMMENT) - REACTIVE SQUAMOUS EPITHELIUM WITH NO INCREASED INTRAEPITHELIAL EOSINOPHILS - NEGATIVE FOR DYSPLASIA AND NEGATIVE FOR MALIGNANCY -- B. GASTRIC POLYPS, BIOPSY: - OXYNTIC GASTRIC MUCOSA WITH SLIGHT HISTOLOGIC CHANGES MOST CONSISTENT WITH FUNDIC GLAND POLYP - NO H. PYLORI LIKE ORGANISMS IDENTIFIED (ON THE H/E STAINED SECTIONS) -- C. GASTRIC MASS, BIOPSY: BENIGN OXYNTIC GASTRIC MUCOSA (SEE COMMENT) NO H. 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 COMMENT FOR PART C: The submitted biopsy is labeled as gastric mass. However, the biopsy is superficial and shows unremarkable gastric mucosa, even after multiple levels evaluation. These findings don't rule out the presence of submucosal lesion, correlation with endoscopic and imaging findings is recommended for further work up, such as deeper biopsy. TXN 06/18/2023 1019 Local . 01 Electronically signed: . Tawfeq MD Naun, Pathologist NPI- [id number] . 01 Gross description: . Part A: GE JUNCTION: Received in formalin is multiple fragment(s) of newton, soft tissue measuring 0.5 x 0.3 x 0.1 cm submitted entirely in 1 cassette(s) Part B: GASTRIC POLYPS: Received in formalin is 2 fragment(s) of newton, soft tissue measuring 0.3 x 0.3 x 0.2 cm to 0.2 x 0.2 x 0.1 cm submitted entirely in 1 cassette(s) Part C: GASTRIC MASS: Received in formalin is multiple fragment(s) of newton, soft tissue measuring 0.7 x 0.7 x 0.2 cm in aggregate submitted entirely in 1 cassette(s) /AAY 06/05/2023 0502 Local . 01 Pathologist provided ICD-10: K21.9 . 01 CPT . 245965, 910867, 635970 Specimen Comment: A courtesy copy of this report has been sent to [phone] Performed at: 01 [facility] [address] [facility], [place], [place] [id number] MD Huseyin Bolaños MD Phone: [phone]
[2023-06-04 14:19] VITALS: BP 138/87; PULSE 88; RESP 16; TEMP 36.2; O2SAT 99; BMI 29.0
[2023-06-04] MEDS: LACTATED RINGERS 1,000 ML 42 ML IV (14:30)
--- NOTE | 2023-06-04 15:36 | PM.HP.1 ---
History of Present Illness History of Present Illness Date Patient Seen: 06/04/23 Time Patient Seen: 15:37 [place] [facility] [place]: Tapan is a 78-year-old man with a history of GIST tumor of the stomach and Sandoval's esophagus. He is here for a surveillance endoscopy. 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 GERD (gastroesophageal reflux disease) History of TIA (transient ischemic attack) Insomnia Supraspinatus tendon tear TIA (transient ischemic attack) Surgical History (Updated 10/31/22 @ 12:09 by Gregory Leong MD) History of appendectomy History of colonoscopy History of tympanostomy Hx of hernia repair S/P left knee arthroscopy Social History household members: children Smoking Status: Never smoker alcohol intake: current Meds Home Medications and Allergies Home Medications Medication Instructions Recorded Confirmed Type aspirin 81 mg tablet,delayed 81 mg PO DAILY 02/08/19 06/04/23 History release cholecalciferol (vitamin D3) 125 5,000 unit PO DAILY 02/08/19 06/04/23 History mcg (5,000 unit) tablet (Vitamin D3) coenzyme Q10 100 mg capsule (Co 100 mg PO DAILY 02/08/19 06/04/23 History Q-10) cyanocobalamin (B12)-cobamamide 2,500 mg sublingual DAILY 02/08/19 06/04/23 History 5,000 mcg-100 mcg sublingual tablet (B-12 Plus) atorvastatin 20 mg tablet See Rx Instructions .Route 06/04/22 06/04/23 Rx .COMPLEX #90 tabs omeprazole 20 mg capsule,delayed 20 mg PO DAILY 09/09/22 06/04/23 History release trazodone 150 mg tablet 150 mg PO BEDTIME PRN sleep #90 12/30/22 06/04/23 Rx tabs levothyroxine 75 mcg tablet See Rx Instructions .Route 01/21/23 06/04/23 Rx (Synthroid) .COMPLEX #90 tabs prazosin 5 mg capsule 5 mg PO BEDTIME #90 caps 05/22/23 06/04/23 Rx Allergies Allergy/AdvReac Type Severity Reaction Status Date / Time No Known Allergies Allergy Verified 06/04/23 12:43 Exam Vital Signs (past 8 hours): - 06/04/23 14:19 Temperature 97.2 F L Pulse Rate 88 Respiratory Rate 16 Blood Pressure 138/87 Pulse Oximetry 99 Oxygen Delivery Method Room Air Oxygen Delivery Method Room Air Const General: healthy appearing Assessment & Plan Assessment and plan (1) Sandoval's esophagus determined by endoscopy: Status: Acute Plan Tulio is a 78-year-old man with a history of Sandoval's esophagus and just tumor of the stomach who is here for an EGD. We reviewed the risks and benefits of EGD and would like to proceed
--- NOTE | 2023-06-04 16:07 | PM.OP.EGD ---
Operative Date/Time/Diagnoses Date of procedure: 06/04/23 Time of procedure: 16:07 Pre-op diagnosis: History of GIST tumor and Sandoval's esophagus Post-op diagnosis: same Procedure & Clinicians Study performed: Esophagogastroduodenoscopy Same procedure as scheduled: Yes Surgeon: Gil Negrete Procedure Notes Procedure in detail: Surgeon: Gil Negrete MD Anesthesia: Tapan Holbrook timeout was performed. A bite blocked was placed. The patient was positioned in the left lateral decubitus position. Anesthesia was administered. The endoscope was inserted through the bite block and passed through the esophagus and stomach and into the duodenum. The duodenal mucosa appeared normal. The scope was withdrawn into the duodenal bulb and no abnormalities were seen. The scope was withdrawn into the stomach. The distal stomach appeared normal. The scope was retroflexed and 2 5 mm polyps were noted near the suture from the prior surgery. These were resected with a cold snare and sent together. There was also a rather large submucosal mass. A segment was biopsied with a cold snare and sent as ?gastric mass?. The scope was withdrawn into the esophagus and patches and islands of salmon-colored mucosa were identified at the GE junction. Some random biopsies were taken from the GE junction. The remainder of the esophagus was normal. The scope was withdrawn. The patient was awakened and brought to recovery. Sedation time: 14 minutes Findings: 2 5 mm polyps in the proximal stomach, a submucosal mass proximal stomach and patches of salmon-colored mucosa at the GE junction Post-procedure Disposition: PACU
[2023-06-04 16:08] VITALS: BP 114/80; PULSE 80; RESP 16; TEMP 37.1; O2SAT 98
[2023-06-04 16:14] VITALS: BP 112/72; PULSE 75; RESP 20; O2SAT 100
[2023-06-04 16:18] VITALS: BP 116/82; PULSE 73; RESP 20; O2SAT 100
[2023-06-04 16:29] VITALS: BP 115/80; PULSE 67; RESP 20; O2SAT 100
== END 2023-06-04 16:50 | disposition home or self-care (01) ==
PROVIDERS: PCP Family Medicine; Referring Provider Surgery; Visit Provider Surgery
PROC: 0DJ08ZZ Inspection of Upper Intestinal Tract, Via Natural or Artificial Opening Endoscopic (ICD-10-PCS; CPT 43235; principal; 2023-06-04 13:45)
DX: Z87.19 Personal history of other diseases of the digestive system (principal); K22.70 Barrett's esophagus without dysplasia
CPT/HCPCS: 43251; 36415; J2704

== ENCOUNTER → 2023-06-16 10:31 | Outpatient (CLI) | payer OTHER, SELFPAY ==
[2022-09-09 18:11] VITALS: BMI 29.0
--- NOTE | 2023-06-16 10:32 | DI.CT.S_ITS ---
PROCEDURE: CT ABDOMEN PELVIS W CON INDICATIONS: HISTORY OF GASTROINTESTINAL STROMAL TUMOR TECHNIQUE: After the administration of oral and IV contrast, axial sections were acquired from the lung bases to the pubic symphysis. Coronal and sagittal reformats were performed. For radiation dose reduction, the following was used: automated exposure control, adjustment of mA and/or kV according to patient size. COMPARISON: [facility], CT, CHEST/ABD/PEL WITH CONTRAST, 11/09/2017, 11:21. FINDINGS: Image quality: Excellent. Lung bases: Unremarkable. Small hiatal hernia. Heart: No significant findings. ABDOMEN: Liver: Normal size. Mild hepatic steatosis. Gallbladder: Unremarkable. Biliary ducts: Unremarkable. Pancreas: Unremarkable. Spleen: Unremarkable. Adrenal Glands: Unremarkable. Kidneys and Ureters: There is a 1 cm low-density cortical nodule in the lateral cortex of the left kidney, likely a cyst. No stones or hydronephrosis no solid renal masses.. Stomach and Bowel: There is wall thickening involving the gastric cardia. There is a 1.7 cm hypodense nodule is seen in the gastric cardia. Duodenum is thickened primarily involving the duodenal C-sweep. Distal small bowel loops are normal. There are colonic diverticulosis. No acute diverticulitis. Peritoneum: No abnormal intraperitoneal fluid. No free air. Ventral Wall: Fat containing ventral hernias are noted in upper anterior abdominal wall at midline above the umbilicus. Abdominal Nodes: No retroperitoneal or mesenteric adenopathy by size criteria. Vessels: Aorta and inferior vena cava are normal in size. PELVIS: Pelvic Organs: Prostate is enlarged. Bladder: Unremarkable. Pelvic Nodes: No enlarged lymph nodes. Miscellaneous: No inguinal hernias are seen. Bones: Unremarkable. IMPRESSION: 1. There is thickening involving the gastric cardia. There is a 1.7 cm hypodense nodule in gastric cardia. Differential diagnoses are artifact from fluid trapped within the lumen of the gastric cardia, a hypodense mass and focal gastric ulceration. Please correlate with findings on endoscopy. 2. Duodenum is thickened. Differential diagnoses are duodenitis and duodenal neoplasm. Recommend correlation with findings on endoscopy. 3. No lymphadenopathy in abdomen or pelvis. 4. Diverticulosis without acute diverticulitis. Dictated by: Booker Ryan M.D. on 06/17/2023 at 10:13 Approved by: Booker Ryan M.D. on 06/17/2023 at 11:31
[2023-06-16 12:01] LABS: BUN Creatinine Ratio 24.5 (6-22); Blood Urea Nitrogen 26 mg/dL (9-20); Estimated Glomerular Filt Rate > 60 mL/min (>60)
== END ==
PROVIDERS: PCP Family Medicine; Referring Provider Surgery; Visit Provider Surgery
DX: Z08 Encounter for follow-up examination after completed treatment for malignant neoplasm (principal); Z85.09 Personal history of malignant neoplasm of other digestive organs; K31.9 Disease of stomach and duodenum, unspecified; K57.90 Diverticulosis of intestine, part unspecified, without perforation or abscess without bleeding; K76.0 Fatty (change of) liver, not elsewhere classified; K44.9 Diaphragmatic hernia without obstruction or gangrene; K43.9 Ventral hernia without obstruction or gangrene; N40.0 Benign prostatic hyperplasia without lower urinary tract symptoms
CPT/HCPCS: 36415; 74177; 82565; 84520; Q9967

== ENCOUNTER → 2024-02-04 08:57 | Outpatient (CLI) | payer OTHER, SELFPAY ==
[2022-09-09 18:11] VITALS: BMI 29.0
[2024-02-04 20:02] LABS: Add Manual Diff / Slide Review NO; Basophils Absolute Auto 0 /uL (0-100); Basophils Percent Auto 0.6 % (0-2); Eosinophils Absolute Auto 500 /uL (0-450); Hematocrit 41.1 % (41-53); Hemoglobin 13.6 g/dL (13.5-17.5); Lymphocytes Absolute Auto 1400 /uL (1100-4500); Lymphocytes Percent Auto 27.4 % (25-40); Mean Corpuscular HGB Conc 33.1 % (30-36); Mean Corpuscular Hemoglobin 33.4 PG (26-34); Mean Corpuscular Volume 100.9 fL (80-100); Monocytes Absolute Auto 500 /uL (0-900); Monocytes Percent Auto 10.5 % (3-14); Neutrophils Absolute Auto 2600 /uL (1500-7000); Neutrophils Percent Auto 51.5 % (50-75); Platelet Count 182 X10^3/uL (150-400); Red Blood Cell Count 4.07 X10^6/uL (4.5-5.9); Red Cell Distribution Width 15.5 % (11.6-14.8); White Blood Cell Count 5.1 X10^3/uL (4.5-11.0)
[2024-02-04 20:09] LABS: BUN Creatinine Ratio 22.6 (6-22); Blood Urea Nitrogen 26 mg/dL (9-20); Calcium 9.2 mg/dL (8.4-10.2); Carbon Dioxide 26 mmol/L (22-32); Chloride 108 mmol/L (98-107); Cholesterol 158 mg/dL (140-199); Estimated Glomerular Filt Rate > 60 mL/min (>60); Glucose 89 mg/dL (80-110); HDL Cholesterol 75 mg/dL (40-60); HEMOLYSIS < 15 (0-50); LDL Cholesterol Calculated 75 mg/dL (<100); Potassium 4.4 mmol/L (3.4-5.1); Sodium 139 mmol/L (137-145); Triglycerides 41 mg/dL (35-150)
== END ==
PROVIDERS: PCP Family Medicine; Visit Provider Family Medicine
DX: K22.70 Barrett's esophagus without dysplasia (principal); E03.9 Hypothyroidism, unspecified; E78.2 Mixed hyperlipidemia; Z86.73 Personal history of transient ischemic attack (TIA), and cerebral infarction without residual deficits
CPT/HCPCS: 80048; 80061; 84443; 85025

== ENCOUNTER 2024-09-14 11:25 | Day surgery (SDC) | payer OTHER, SELFPAY ==
[2022-09-09 18:11] VITALS: BMI 29.0
--- NOTE | 2024-09-14 | PATH_ITS ---
[facility] Accession Number: [id number] No. of containers..01 Tissue . 01 Material submitted: . esophagus, E-G Junction - GE JUNCTION . 01 Diagnosis: GE JUNCTION: Squamocolumnar junctional mucosa with goblet cell (Sandoval's) metaplasia. No dysplasia identified. . Specimen Comments: The features are consistent with Sandoval's esophagus in the right clinical setting. [facility] 09/16/20241723 Local . 01 Electronically signed: . Huseyin Bolaños MD, Pathologist NPI- [id number] . 01 Gross description: . Received in formalin with two patient identifiers and GE junction, are two newton soft tissue fragments 0.3 to 0.5 cm in greatest dimension. Submitted in cassette A1. ([id number]) /HONG 09/16/20241723 Local . 01 Pathologist provided ICD-10: K22.70 . 01 CPT . 909278 Specimen Comment: A courtesy copy of this report has been sent to [phone] Performed at: [address] [facility] [address], [place], [place] [id number] MD Huseyin Bolaños MD Phone: [phone]
[2024-09-14 12:20] VITALS: BP 156/86; PULSE 79; RESP 16; TEMP 36.6; O2SAT 98
[2024-09-14 12:33] LABS: COVID19 -Nasal RAPID Negative (Negative)
--- NOTE | 2024-09-14 12:53 | PM.PREOP ---
Pre-operative Note COVID-19 COVID-19 status: Not tested Interval Note History & Physical reviewed/Exam performed by Physician: Yes Changes to H&P: No ASA Class (for procedural sedation): III
[2024-09-14 13:40] VITALS: BP 110/75; PULSE 86; RESP 17; TEMP 36.9; O2SAT 96
--- NOTE | 2024-09-14 13:40 | PM.OP.EGD ---
Operative Date/Time/Diagnoses Date of procedure: 09/14/24 Time of procedure: 13:40 Pre-op diagnosis: History of a GIST tumor Post-op diagnosis: same Procedure & Clinicians Study performed: Esophagogastroduodenoscopy Same procedure as scheduled: Yes Surgeon: Gil Negrete Procedure Notes Procedure in detail: Surgeon: Gil Negrete MD Anesthesia: Becca Jane CRNA A timeout was performed. A bite blocked was placed. The patient was positioned in the left lateral decubitus position. Anesthesia was administered. The endoscope was inserted through the bite block and passed through the esophagus and stomach and into the duodenum. The duodenal mucosa appeared normal. The scope was withdrawn into the duodenal bulb and no abnormalities were seen. The scope was withdrawn into the stomach. There was no obvious mass. There was possibly some scar tissue in the proximal stomach from prior resection site. The rest of the stomach was normal. The scope was retroflexed and a small hiatal hernia was noted. The scope was withdrawn into the esophagus and there were some salmon-colored patches of mucosa above the GE junction. Biopsies were taken with forcep. The remainder of the esophagus was normal. The scope was withdrawn. The patient was awakened and brought to recovery. Sedation time: 7 minutes Findings: Hiatal hernia and salmon-colored patches of mucosa above the GE junction Post-procedure Disposition: PACU
[2024-09-14 13:46] VITALS: BP 123/67; PULSE 82; RESP 17; O2SAT 97
[2024-09-14 13:48] VITALS: BP 106/71; PULSE 90; RESP 22; O2SAT 97
== END 2024-09-14 14:10 | disposition home or self-care (01) ==
PROVIDERS: Nurse Anesthetist, Certified Registered; PCP Family Medicine; Referring Provider Surgery; Visit Provider Surgery
PROC: 0DJ08ZZ Inspection of Upper Intestinal Tract, Via Natural or Artificial Opening Endoscopic (ICD-10-PCS; CPT 43239; principal; 2024-09-14 12:45)
DX: K22.70 Barrett's esophagus without dysplasia (principal); Z87.19 Personal history of other diseases of the digestive system; Z11.52 Encounter for screening for COVID-19; K44.9 Diaphragmatic hernia without obstruction or gangrene
CPT/HCPCS: 43239; 87635; J2704

== ENCOUNTER → 2025-05-03 11:48 | Outpatient (CLI) | payer OTHER, SELFPAY ==
[2024-10-21 13:20] VITALS: BMI 29.0
[2025-05-03 19:40] LABS: Add Manual Diff / Slide Review NO; Hematocrit 44.8 % (41-53); Hemoglobin 15.4 g/dL (13.5-17.5); Lymphocytes Absolute Auto 1500 /uL (1100-4500); Mean Corpuscular HGB Conc 34.4 % (30-36); Mean Corpuscular Hemoglobin 34.5 PG (26-34); Mean Corpuscular Volume 100.4 fL (80-100); Platelet Count 202 X10^3/uL (150-400)
[2025-05-03 19:49] LABS: Alanine Aminotransferase 18 IU/L (<50); Albumin 4.2 g/dL (3.5-5.0); Albumin Globulin Ratio 1.6 (1.0-2.8); Alkaline Phosphatase 70 U/L (38-126); Blood Urea Nitrogen 29 mg/dL (9-20); Calcium 9.6 mg/dL (8.4-10.2); Carbon Dioxide 27 mmol/L (22-32); Chloride 104 mmol/L (98-107); Estimated Glomerular Filt Rate > 60 mL/min (>60); Globulin 2.6 g/dL (1.7-4.1); Glucose 94 mg/dL (70-99); HEMOLYSIS 18 (0-50); Potassium 4.5 mmol/L (3.4-5.1); Sodium 137 mmol/L (137-145); Total Protein 6.8 g/dL (6.3-8.2)
== END ==
PROVIDERS: PCP Family Medicine; Visit Provider Physician Assistant
DX: Z79.899 Other long term (current) drug therapy (principal)
CPT/HCPCS: 80053; 85025

== ENCOUNTER → 2025-05-17 13:07 | Outpatient (CLI) | payer OTHER, SELFPAY ==
[2024-10-21 13:20] VITALS: BMI 29.0
[2025-05-17 20:23] LABS: TSH w/ Reflex to FT4 1.70 uIU/mL (0.47-4.68)
== END ==
PROVIDERS: PCP Family Medicine; Visit Provider Family Medicine
DX: E03.9 Hypothyroidism, unspecified (principal)
CPT/HCPCS: 84443

== ENCOUNTER → 2025-06-25 09:58 | Outpatient (CLI) | payer OTHER, SELFPAY ==
[2024-10-21 13:20] VITALS: BMI 29.0
--- NOTE | 2025-06-25 10:00 | DI.MRI.S_ITS ---
PROCEDURE: MR LUMBAR SPINE WO CON INDICATIONS: Increasing pain/dysfunction TECHNIQUE: Noncontrast sagittal T1 spin echo and T2 fast echo, sagittal STIR, and T2 fast spin echo through the lumbar spine. In cases with scoliosis, additional coronal T2 fast spin echo may be performed. COMPARISON: None. FINDINGS: Image quality: Excellent. Alignment and Curvature: There is normal bony alignment. Bone Marrow: Marrow is of normal overall signal. Areas of focal fat/hemangiomas are seen at T12, L2, and encompassing the majority of L5. No acute vertebral body compression fractures. Spinal Cord: Conus medullaris terminates at the T12/L1 level. Visualized cord demonstrates normal signal and size. Paraspinous Soft Tissues: No paravertebral masses. Discs: Discs maintain normal height with loss of the normal disc T2 hyperintensity throughout the lumbar spine. Level specific changes are below. T12-L1: Normal appearance. L1-L2: Normal appearance. L2-L3: There is a mild asymmetric leftward disc bulge which causes mild left neural foraminal narrowing without significant spinal canal or right neural foraminal narrowing. L3-L4: There is a mild disc bulge which causes mild bilateral neural foraminal narrowing at that significant spinal canal narrowing. L4-L5: There is mild disc bulge which causes mild bilateral neural foraminal narrowing without significant spinal canal narrowing. L5-S1: There is a left paracentral disc extrusion which causes moderate spinal canal narrowing in the AP and transverse dimensions with mass effect on the exiting left L5 nerve root. This extrusion extends 2.1 cm caudally and abuts the traversing left S1 nerve root. IMPRESSION: Multilevel degenerative disc disease most prominent at the lumbosacral junction. Dictated by: Arabella Interiano M.D. on 06/25/2025 at 10:32 Approved by: Arabella Interiano M.D. on 06/25/2025 at 10:43
== END ==
PROVIDERS: PCP Family Medicine; Referring Provider Family Medicine; Visit Provider Physician Assistant
DX: M51.16 Intervertebral disc disorders with radiculopathy, lumbar region (principal); M51.17 Intervertebral disc disorders with radiculopathy, lumbosacral region; M54.50 Low back pain, unspecified
CPT/HCPCS: 72148

== ENCOUNTER → 2025-08-21 13:22 | Outpatient (CLI) | payer OTHER, SELFPAY ==
[2024-10-21 13:20] VITALS: BMI 29.0
[2025-08-21 18:39] LABS: Add Manual Diff / Slide Review NO; Hematocrit 43.6 % (41-53); Hemoglobin 14.8 g/dL (13.5-17.5); Lymphocytes Absolute Auto 1300 /uL (1100-4500); Mean Corpuscular HGB Conc 34.0 % (30-36); Mean Corpuscular Hemoglobin 33.8 PG (26-34); Mean Corpuscular Volume 99.4 fL (80-100); Platelet Count 209 X10^3/uL (150-400)
[2025-08-21 18:51] LABS: Blood Urea Nitrogen 24 mg/dL (9-20); Calcium 9.6 mg/dL (8.4-10.2); Carbon Dioxide 25 mmol/L (22-32); Chloride 104 mmol/L (98-107); Cholesterol 156 mg/dL (140-199); Estimated Glomerular Filt Rate > 60 mL/min (>60); Glucose 101 mg/dL (70-99); HDL Cholesterol 82 mg/dL (40-60); HEMOLYSIS < 15 (0-50); Potassium 4.7 mmol/L (3.4-5.1); Sodium 138 mmol/L (137-145); Triglycerides 57 mg/dL (35-150)
[2025-08-21 19:21] LABS: TSH w/ Reflex to FT4 2.04 uIU/mL (0.47-4.68)
== END ==
PROVIDERS: PCP Family Medicine; Visit Provider Family Medicine
DX: Z12.5 Encounter for screening for malignant neoplasm of prostate (principal); E03.9 Hypothyroidism, unspecified; I65.23 Occlusion and stenosis of bilateral carotid arteries; E78.2 Mixed hyperlipidemia; Z86.73 Personal history of transient ischemic attack (TIA), and cerebral infarction without residual deficits
CPT/HCPCS: 80048; 80061; 84443; 85025; G0103